=== PATIENT | male | born 1975 | race African-American/Black ===

== ENCOUNTER 2025-04-15 15:25 | Observation (INO) | payer OTHER, SELFPAY ==
[2025-04-15] VITALS (8 sets, daily range): BP systolic 118–159; BP diastolic 79–99; PULSE 74–109; RESP 15–20; TEMP 36.5–36.9; O2SAT 98–100; BMI 32.3
--- NOTE | ~2025-04-15 | US_ITS ---
EXAMINATION: US renal BI DATE: 04/16/2025 12:09 INDICATION: Acute renal insufficiency TECHNIQUE: Multiple ultrasound grayscale images of the kidneys were obtained. COMPARISON: None. FINDINGS: The right kidney measures 10.9 x 5.5 x 5.7 cm. The left kidney measures 11.7 x 6.9 x 5.7 cm. The kidn eys demonstrate normal echogenicity. There is no hydronephrosis in either kidney. No stones identifi ed. The bladder is normal with normal bilateral ureteral jets visualized on color Doppler. IMPRESSION: 1. Normal kidneys without hydronephrosis. Reviewed, dictated and finalized at location A.
[2025-04-15] MEDS: SODIUM CHLORIDE 0.9% IV 1,000 ML 999 ML IV CONT (16:22)
[2025-04-15 16:34] LABS: Hematocrit 47.5 % (42.0-52.0); Hemoglobin 16.2 g/dL (14.0-18.0); Immature Granulocyte Percent A 0.5 % (0-0.5); Lymphocytes Absolute Auto 1.73 K/mm3 (0.9-3.2); Mean Corpuscular HGB Conc 34.1 g/dl (32-36); Mean Corpuscular Hemoglobin 29.5 pg (26-34); Mean Corpuscular Volume 86.5 fl (80-100); Nucleated Red Blood Cells Absolute Auto 0.000 K/mm3 (0.0-0.012); Nucleated Red Blood Cells Perc 0.0 % (0.0-0.2); Platelet Count Result 337 k/mm3 (150-375); Red Blood Count 5.49 M/mm3 (4.6-6.20); White Blood Count 12.2 K/mm3 (4.5-10.0)
[2025-04-15 16:47] LABS: Alanine Aminotransferase 31 U/L (6-50); Albumin Level 5.2 g/dL (3.5-5.1); Alkaline Phosphatase 73 U/L (38-126); Anion Gap 12 mmol/L (4-12); Aspartate Amino Transferase 42 U/L (17-59); Bilirubin,Total 1.1 mg/dL (0.2-1.3); Blood Urea Nitrogen 40 mg/dL (9-20); Calcium 10.4 mg/dL (8.4-10.2); Carbon Dioxide 27 mmol/L (22-30); Chloride 101 mmol/L (98-107); Creatine Kinase 378 U/L (55-170); Estimated CRCL calculation 32 ml/min; Estimated Glomerular Filt Rate 23; Glucose 77 mg/dL (65-110); Potassium 3.9 mmol/L (3.4-5.0); Sodium 140 mmol/L (137-145); Total Protein 9.5 g/dL (6.3-8.2)
--- NOTE | 2025-04-15 16:48 | ED.GENADULT ---
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 Reports he works outside. He was trying to keep up with hydration. Reports he felt diffuse muscle cramping. Is feeling better after some hydration. <MINESH Ballard Last Filed: 04/15/25 19:04> Related Data Home medications: Home Medications ?Medication ?Instructions ?Recorded ?Confirmed ?Last Taken ?Type atorvastatin 20 mg tablet 20 mg PO QPM 04/15/25 04/15/25 04/14/25 History testosterone 2 pump topical DAILY 04/15/25 04/15/25 Unknown History tirzepatide 15 mg/0.5 mL 15 mg subcut WEEKLY 04/15/25 04/15/25 04/08/25 History subcutaneous pen injector (Mounjaro) <MINESH Ballard Last Filed: 04/15/25 19:04> Allergies/adverse reactions: Allergies Allergy/AdvReac Type Severity Reaction Status Date / Time No Known Allergies Allergy Verified 04/15/25 15:36 <MINESH Ballard Last Filed: 04/15/25 19:04> Review of Systems Review of Systems: All systems reviewed & are unremarkable except as noted in HPI and below <MINESH Ballard Last Filed: 04/15/25 19:04> PMFSH Past Medical History Medical History: Medical History Type 2 diabetes mellitus <Inés Gloria PA-C - Last Filed: 04/15/25 19:04> Family History Family History: Family History Mother Diabetes mellitus Hypertension Sibling Hypertension <MINESH Ballard Last Filed: 04/15/25 19:04> Social History Social History: Social History Smoking status: Never smoker Alcohol intake: never Substance use type: does not use Lack of Transportation: No Lack of Food: Never True Current Housing: I Have Housing Concerned About Future Housing: No Difficulty Paying Gas/Electric Bills: No Difficulty Paying for Meds: No Currently Unemployed: No Education: Associate Degree Difficulty w/ Childcare or Family Care: No Spiritual care concerns: No <Inés Gloria PA-C - Last Filed: 04/15/25 19:04> Exam Narrative: GENERAL: Well-appearing, well-nourished, and in no acute distress. HEAD: Normocephalic, atraumatic. EYES: EOMI. ENT: Nares clear, no rhinorrhea or epistaxis. Mucous membranes moist. Oropharynx without tonsillar hypertrophy exudate or other lesions. CHEST: Clear to auscultation. No respiratory distress. No wheezes rales or rhonchi HEART: Regular rate and rhythm. No murmur heard. Normal peripheral pulses. ABDOMEN: Soft, nontender, nondistended, normal active bowel sounds. EXTREMITIES: Normal range of motion. No edema. SKIN: Warm, dry, no rash. NEURO: No focal deficits. Alert and oriented x3. PSYCH: Normal mood and affect <MINESH Ballard Last Filed: 04/15/25 19:04> Course Course Emergency Course: Patient updated on his workup and recommendation for admission <MINESH Ballard Last Filed: 04/15/25 19:04> DIRECTOR PERIOPERATIVE/PA Physician Supervision This visit was performed by both a physician and an APC. I performed all aspects of the MDM as documented. <Alex Alvarenga MD - Last Filed: 04/15/25 20:27> Consultations Consultation #1: Spoke with hospitalist about patient and workup who accepts admission <Inés Gloria PA-C - Last Filed: 04/15/25 19:04> Date: 04/15/25 <Inés Gloria PA-C - Last Filed: 04/15/25 19:04> Vital Signs Vital signs: Vital Signs Temperature 97.9 F 04/15/25 15:30 Pulse Rate 108 H 04/15/25 15:30 Respiratory Rate 20 04/15/25 15:30 Blood Pressure 118/79 04/15/25 15:30 Pulse Oximetry 98 04/15/25 15:30 Oxygen Delivery Room Air 04/15/25 15:30 Temperature 98.4 F 04/15/25 20:05 Pulse Rate 74 04/15/25 20:05 Respiratory Rate 20 04/15/25 20:05 Blood Pressure 144/83 H 04/15/25 20:05 Pulse Oximetry 100 04/15/25 20:05 Oxygen Delivery Room Air 04/15/25 15:30 <Inés Gloria PA-C - Last Filed: 04/15/25 19:04> Vital Signs Temperature 97.9 F 04/15/25 15:30 Pulse Rate 108 H 04/15/25 15:30 Respiratory Rate 20 04/15/25 15:30 Blood Pressure 118/79 04/15/25 15:30 Pulse Oximetry 98 04/15/25 15:30 Oxygen Delivery Room Air 04/15/25 15:30 Temperature 98.4 F 04/15/25 20:05 Pulse Rate 74 04/15/25 20:05 Respiratory Rate 20 04/15/25 20:05 Blood Pressure 144/83 H 04/15/25 20:05 Pulse Oximetry 100 04/15/25 20:05 Oxygen Delivery Room Air 04/15/25 15:30 <Alex Alvarenga MD - Last Filed: 04/15/25 20:27> Medical Decision Making MDM Narrative Medical decision making narrative: Patient presents to the emergency department for dehydration, muscle cramping. Tachycardic upon arrival, this normalized with IV fluids. CBC with mild leukocytosis to 12.2. Metabolic panel with evidence of acute kidney injury with creatinine of 2.97. CK is mildly elevated at 378. Urine with evidence of dehydration. Patient hydrated with 2 L of IV fluids. Patient updated on his workup and recommendation for admission. Spoke with hospitalist about patient and workup who accepts admission <Inés Gloria PA-C - Last Filed: 04/15/25 19:04> Differential Diagnosis Differential Diagnosis: Dehydration, acute kidney injury, electrolyte derangement <Inés Gloria PA-C - Last Filed: 04/15/25 19:04> Medical Records Medical records reviewed: Yes I reviewed the external patient's medical records. <Inés Gloria PA-C - Last Filed: 04/15/25 19:04> Medical records narrative: I was able to review patient's blood work from his EMR on his phone showing a Cr of 1.19 just a couple of weeks ago <MINESH Ballard Last Filed: 04/15/25 19:04> Vital Signs Vital Signs: Vital Signs Temperature 97.9 F 04/15/25 15:30 Pulse Rate 108 H 04/15/25 15:30 Respiratory Rate 20 04/15/25 15:30 Blood Pressure 118/79 04/15/25 15:30 Pulse Oximetry 98 04/15/25 15:30 Oxygen Delivery Room Air 04/15/25 15:30 Temperature 98.4 F 04/15/25 20:05 Pulse Rate 74 04/15/25 20:05 Respiratory Rate 20 04/15/25 20:05 Blood Pressure 144/83 H 04/15/25 20:05 Pulse Oximetry 100 04/15/25 20:05 Oxygen Delivery Room Air 04/15/25 15:30 <MINESH Ballard Last Filed: 04/15/25 19:04> Vital Signs Temperature 97.9 F 04/15/25 15:30 Pulse Rate 108 H 04/15/25 15:30 Respiratory Rate 20 04/15/25 15:30 Blood Pressure 118/79 04/15/25 15:30 Pulse Oximetry 98 04/15/25 15:30 Oxygen Delivery Room Air 04/15/25 15:30 Temperature 98.4 F 04/15/25 20:05 Pulse Rate 74 04/15/25 20:05 Respiratory Rate 20 04/15/25 20:05 Blood Pressure 144/83 H 04/15/25 20:05 Pulse Oximetry 100 04/15/25 20:05 Oxygen Delivery Room Air 04/15/25 15:30 <Alex Alvarenga MD - Last Filed: 04/15/25 20:27> Lab Data Lab results reviewed: Yes I reviewed the patient's lab results. <Inés Gloria PA-C - Last Filed: 04/15/25 19:04> Result diagrams: 04/15/25 16:25 04/15/25 16:25 <Inés Gloria PA-C - Last Filed: 04/15/25 19:04> Labs: Lab Results 04/15/25 04/15/25 Range/Units 16:25 17:23 WBC 12.2 H (4.5-10.0) K/mm3 RBC 5.49 (4.6-6.20) M/mm3 Hgb 16.2 (14.0-18.0) g/dL Hct 47.5 (42.0-52.0) % MCV 86.5 (80-100) fl MCH 29.5 (26-34) pg MCHC 34.1 (32-36) g/dl RDW 12.9 (11.5-14.5) % Plt Count 337 (150-375) k/mm3 MPV 9.5 (7.4-10.4) fl Immature Gran % (Auto) 0.5 (0-0.5) % Neut % (Auto) 76.9 H (45.5-73.1) % Lymph % (Auto) 14.2 L (18.3-44.2) % [place] % (Auto) 6.6 (2.6-8.5) % Eos % (Auto) 1.6 (0-4.4) % Baso % (Auto) 0.2 (0.2-1.2) % Lymph # (Auto) 1.73 (0.9-3.2) K/mm3 [place] # (Auto) 0.8 H (0.1-0.6) K/mm3 Eos # (Auto) 0.2 (0-0.3) K/mm3 Baso # (Auto) 0.0 (0.0-0.1) K/mm3 Abs Immat Gran (auto) 0.06 H (0.00-0.031) K/mm3 Absolute Neuts (auto) 9.4 H (1.3-6.7) K/mm3 Absolute Nucleated RBC 0.000 (0.0-0.012) K/mm3 Nucleated RBC % 0.0 (0.0-0.2) % Sodium 140 (137-145) mmol/L Potassium 3.9 (3.4-5.0) mmol/L Chloride 101 (98-107) mmol/L Carbon Dioxide 27 (22-30) mmol/L Anion Gap 12 (4-12) mmol/L BUN 40 H (9-20) mg/dL Creatinine 2.97 H (0.7-1.3) mg/dL Estim Creat Clear Calc 32 ml/min Estimated GFR 23 L (59 - ) Glucose 77 (65-110) mg/dL Calcium 10.4 H (8.4-10.2) mg/dL Total Bilirubin 1.1 (0.2-1.3) mg/dL AST 42 (17-59) U/L ALT 31 (6-50) U/L Alkaline Phosphatase 73 (38-126) U/L Total Creatine Kinase 378 H (55-170) U/L Total Protein 9.5 H (6.3-8.2) g/dL Albumin 5.2 H (3.5-5.1) g/dL Urine Color Yellow (Yellow) Urine Appearance Clear (Clear) Urine pH 5.0 (5.0-9.0) Ur Specific [place] 1.027 (1.001-1.035) Urine Protein 1+ H (Negative) mg/dL Urine Glucose (UA) Negative (Negative) mg/dL Urine Ketones Trace H (Negative) mg/dL Ur Blood (Man) Trace (Negative) Urine Nitrate Negative (Negative) Urine Bilirubin Negative (Negative) Urine Urobilinogen 0.2 (<2.0) mg/dL Add Ur Microanalysis Reviewed Leukocyte Esterase Rfl Trace H (Negative) EDA/UL Urine RBC 0-2 (0-2) /hpf Urine WBC 6-10 H (0-3) /hpf Ur Squamous Epith Cells Few (Few) /hpf Urine Bacteria None seen /hpf Urine Casts >20 <Inés Gloria PA-C - Last Filed: 04/15/25 19:04> Lab Results 04/15/25 04/15/25 Range/Units 16:25 17:23 WBC 12.2 H (4.5-10.0) K/mm3 RBC 5.49 (4.6-6.20) M/mm3 Hgb 16.2 (14.0-18.0) g/dL Hct 47.5 (42.0-52.0) % MCV 86.5 (80-100) fl MCH 29.5 (26-34) pg MCHC 34.1 (32-36) g/dl RDW 12.9 (11.5-14.5) % Plt Count 337 (150-375) k/mm3 MPV 9.5 (7.4-10.4) fl Immature Gran % (Auto) 0.5 (0-0.5) % Neut % (Auto) 76.9 H (45.5-73.1) % Lymph % (Auto) 14.2 L (18.3-44.2) % [place] % (Auto) 6.6 (2.6-8.5) % Eos % (Auto) 1.6 (0-4.4) % Baso % (Auto) 0.2 (0.2-1.2) % Lymph # (Auto) 1.73 (0.9-3.2) K/mm3 [place] # (Auto) 0.8 H (0.1-0.6) K/mm3 Eos # (Auto) 0.2 (0-0.3) K/mm3 Baso # (Auto) 0.0 (0.0-0.1) K/mm3 Abs Immat Gran (auto) 0.06 H (0.00-0.031) K/mm3 Absolute Neuts (auto) 9.4 H (1.3-6.7) K/mm3 Absolute Nucleated RBC 0.000 (0.0-0.012) K/mm3 Nucleated RBC % 0.0 (0.0-0.2) % Sodium 140 (137-145) mmol/L Potassium 3.9 (3.4-5.0) mmol/L Chloride 101 (98-107) mmol/L Carbon Dioxide 27 (22-30) mmol/L Anion Gap 12 (4-12) mmol/L BUN 40 H (9-20) mg/dL Creatinine 2.97 H (0.7-1.3) mg/dL Estim Creat Clear Calc 32 ml/min Estimated GFR 23 L (59 - ) Glucose 77 (65-110) mg/dL Calcium 10.4 H (8.4-10.2) mg/dL Total Bilirubin 1.1 (0.2-1.3) mg/dL AST 42 (17-59) U/L ALT 31 (6-50) U/L Alkaline Phosphatase 73 (38-126) U/L Total Creatine Kinase 378 H (55-170) U/L Total Protein 9.5 H (6.3-8.2) g/dL Albumin 5.2 H (3.5-5.1) g/dL Urine Color Yellow (Yellow) Urine Appearance Clear (Clear) Urine pH 5.0 (5.0-9.0) Ur Specific [place] 1.027 (1.001-1.035) Urine Protein 1+ H (Negative) mg/dL Urine Glucose (UA) Negative (Negative) mg/dL Urine Ketones Trace H (Negative) mg/dL Ur Blood (Man) Trace (Negative) Urine Nitrate Negative (Negative) Urine Bilirubin Negative (Negative) Urine Urobilinogen 0.2 (<2.0) mg/dL Add Ur Microanalysis Reviewed Leukocyte Esterase Rfl Trace H (Negative) EDA/UL Urine RBC 0-2 (0-2) /hpf Urine WBC 6-10 H (0-3) /hpf Ur Squamous Epith Cells Few (Few) /hpf Urine Bacteria None seen /hpf Urine Casts >20 <Alex Alvarenga MD - Last Filed: 04/15/25 20:27> Critical Care Time Critical Care Time Critical Care Time: Yes <Inés Gloria PA-C - Last Filed: 04/15/25 19:04> Total Critical Care Time: 35 <Inés Gloria PA-C - Last Filed: 04/15/25 19:04> Discharge Plan Discharge Clinical Impression: Acute kidney injury <Inés Gloria PA-C - Last Filed: 04/15/25 19:04> Patient Disposition: Still a Patient <Inés Gloria PA-C - Last Filed: 04/15/25 19:04> Condition: Stable <Inés Gloria PA-C - Last Filed: 04/15/25 19:04>
--- OUTSIDE RECORDS SUMMARY | 2025-04-15 17:01 | XMS_ITS | Clinical Summary ---
Author Organization [facility] Address [address] [place] [address] Care Team Providers Care [employer] Revenue Officer Name Role Phone Andrés Davis MD Primary Care Provider [phone] Source Comments [facility],non-owned Affiliates and Associated Physician Practices is amultiple site organization consisting of ambulatory clinics and hospital sitesin [place], [place], [place] and [place]. This disclosure is being madepursuant to the Care Everywhere program and may not contain all information available regarding this patient. Last updated 18.[facility] Allergies No known active allergies Medications * Be aware that medications may not be up to date on this document. Alwaysverify current medications with the patient. No known medications Active Problems Problem Noted Date Diagnosed Date Acute renal failure 02/18/2014 Social History Tobacco Use Types Packs/Day Years Used Date Smoking Tobacco: Never Smokeless Tobacco: Never Alcohol Use Standard Drinks/Week Comments Not Asked 0 (1 standard drink = 0.6 oz pur e alcohol) social Sex and Gender Information Value Date Recorded Sex Assigned at Not on file Legal Sex Male 6:53 PM CDT Gender Identity Not on file Sexual Orientation Not on file Last Filed Vital Signs Vital Sign Reading Time Taken Comments Blood Pressure 122/78 02/18/2014 2:30 PM CDT Pulse 62 02/18/2014 2:30 PM CDT Temperature 36.6 C (97.8 F) 02/18/2014 2:30 PM CDT Respiratory Rate 18 02/18/2014 2:30 PM CDT Oxygen Saturation 100% 02/18/2014 2:30 PM CDT Inhaled Oxygen Concentration - - Weight 102.1 kg (225 lb) 02/17/2014 9:45 PM CDT Height 172.7 cm (5' 7.99) 02/17/2014 9:45 PM CD T Body Mass Index 34.22 02/17/2014 9:45 PM CDT Plan of Treatment Health Maintenance Due Date Last Done Comments COLOGUARD (AGES 45-75) - COL ON CA SCREENING 1976 COLON MONITORING 1976 COLONOSCOPY - COLON CA SCREENING 1976 CT COLONOGRAPHY - COLON CA SCREENING 1976 Colorectal Cancer Screening 1976 FIT - COLON CA SCREENING 1976 FLEX SIG - COLON CA SCREENING 1976 LIPID TESTING 1976 HIV SCREENING 1991 HEPATITIS C SCREENING 03/08/1994 DTAP/TDAP/TD VACCINES (1 - Tdap) 1995 HEPATITIS B VACCINE (1 of 3 - 19+ 3-dose series) 1995 COVID-19 VACCINE (1 - 2023-2 5 season) 2024 DEPRESSION SCREENING 08/30/2024 INFLUENZA VACCINE (#1) 2025 ZOSTER VACCINE (1 of 2) 2026 HIB VACCINE Aged Out No longer eligi ble based on patient's age to complete this topic HPV VACCINE Aged Out No longer eligi ble based on patient's age to complete this topic MENINGOCOCCAL (Group B) VACC INE SHARED DECISION-MAKING Aged Out No longer eligibl e based on patient's age to complete this topic MENINGOCOCCAL GROUPS A/C/Y/W VACCINE Aged Out No longer eligible b ased on patient's age to complete this topic Insurance [facility] Advance Directives * Full Code (Latest Code Status on File) Date Activated Date Inactivated Comments 02/17/2014 9:44 PM 02/18/2014 4:53 PM Care Teams [employer]. Revenue Officer Relationship Specialty Start Date End Date Andrés Davis MD PCP - General Internal Medicine 02/17/14
[2025-04-15] MEDS: LACTATED RINGERS 1,000 ML 999 ML IV CONT (17:02)
--- OUTSIDE RECORDS SUMMARY | 2025-04-15 17:02 | XMS_ITS | Clinical Summary ---
Author Organization [facility] Address [address] [place] [address] Care Team Providers Care Plastics Heat Welder Name Role Phone Andrés Davis MD Primary Care Provider [phone] Allergies No known active allergies Medications No known medications Family History Medical History Relation Comments Cancer Father Diabetes Mother Hypertension Mother Relation Status Comments Father Alive Mother Alive Social History Tobacco Use Types Packs/Day Years Used Date Smoking Tobacco: Never Smokeless Tobacco: Never Alcohol Use Standard Drinks/Week Comments No 0 (1 standard drink = 0.6 oz pur e alcohol) Sex and Gender Information Value Date Recorded Sex Assigned at Not on file Legal Sex Male 7:52 PM CDT Gender Identity Not on file Sexual Orientation Not on file Last Filed Vital Signs Vital Sign Reading Time Taken Comments Blood Pressure 134/84 03/20/2018 2:29 PM CDT Pulse 83 03/20/2018 2:29 PM CDT Temperature 36.4 C (97.6 F) 03/20/2018 2:29 PM CDT Respiratory Rate 16 03/20/2018 2:29 PM CDT Oxygen Saturation 98% 03/20/2018 2:29 PM CDT Inhaled Oxygen Concentration - - Weight 113.4 kg (250 lb) 03/20/2018 2:29 PM CDT Height 172.7 cm (5' 8) 03/20/2018 2:29 PM CDT Body Mass Index 38.01 03/20/2018 2:29 PM CDT Plan of Treatment Health Maintenance Due Date Last Done Comments Colorectal Cancer Screening Colonoscopy (10 Years) 1976 Annual Physical 1979 Hepatitis C 1994 DTaP, Tdap and Td Vaccines ( 1 - Tdap) 1995 Hepatitis B Vaccines (1 of 3 - 19+ 3-dose series) 1995 COVID-19 Vaccine (1 - 2023-2 5 season) 2024 Meningococcal B Vaccine Aged Out No l onger eligible based on patient's age to complete this topic Meningococcal Vaccine Aged Out No poppy gildardo eligible based on patient's age to complete this topic Pneumococcal Vaccine: Pediat rics (0 to 5 Years) and At-Risk Patients (6 to 49 Years) Aged Out No longer eligible b ased on patient's age to complete this topic RSV Immunizations Under 20 Months Aged Out No longer eligible based on patient's age to complete this topic Insurance Care Teams Plastics Heat Welder Relationship Specialty Start Date End Date Andrés Davis MD [address] [place] [address] PCP - General 06/24/15
--- OUTSIDE RECORDS SUMMARY | 2025-04-15 17:02 | XMS_ITS | Clinical Summary ---
Author Organization [facility] Address [address] [place] [phone] Phone Care Team Providers Care Roll Edge Stitcher Hand Name Role Phone Derian Castro MD Primary Care Provider [phone] Allergies No known active allergies Medications cpap medical deviceIndications :ALBA (obstructive sleep apnea),Daytime somnolence,Type 2 diabetes mellitus without complication, without long-term current use of insulin ([facility]),Chronic insomnia APAP @ 6-15 cwp with heated humidifier. Length of need:99 months; fit with mask & headgear. Mask/Headgear as needed every 3- 6 months; 1 cushion as needed every 3-6 months; Tubing heated, 1 as needed every 6 months, water chamber 1 as needed every 6 months, chin strap 1 as needed every 6 months, filters disposable, 2 as needed every 3- 6 months, filters reusable 1 every 6 months. 1 Each 023 Active Additional Information Patient not taking.Reported on 04/02/2025 bacitracin-polymy sylwia B (POLYSPORIN) 500-10,000 unit/gram ointmentIndicatio ns:Hordeolum of right upper eyelid, unspecified hordeolum type Administer 0.25 Inches in right eye every 4 hours. 3.5 Gram 025 Active Additional Information Patient not taking.Reported on 04/02/2025 glycopyrrolate (ROBINUL) 1 mg tablet Take 1 Tablet (1 mg) by mouth 3 times daily. PRN for excess sweating. 300 Tablet 3 03/21/20 25 2:48 PM CDT 025 Active testosterone (ANDROGEL) 20.25 mg/1.25 gram (1.62 %) Gel in Metered-dose PumpIndications:H ypogonadism in male Apply 40.5 mg (2 pumps) to affected area daily. Apply to the shoulders and upper arms in the morning 75 Gram 2 Active atorvastatin (LIPITOR) 20 mg tabletIndications :Mixed hyperlipidemia Take 1 Tablet (20 mg) by mouth daily. 100 Tablet 3 Active tirzepatide (Mounjaro) 15 mg/0.5 mL Pen InjectorIndicatio ns:Type 2 diabetes mellitus without complication, without long-term current use of insulin ([facility]) Inject 15 mg by subcutaneous injection every 7 days. 6 mL 3 04/04/20 25 3:27 PM CDT Active testosterone enanthate (Xyosted) 50 mg/0.5 mL Auto-InjectorIndi cations:Central hypogonadism Inject 50 mg by subcutaneous injection every 7 days. 6 mL 1 025 2024 Discontinued(A lternate therapy prescribed) atorvastatin (LIPITOR) 20 mg tabletIndications :Mixed hyperlipidemia Take 1 Tablet (20 mg) by mouth daily. 100 Tablet 3 2024 Discontinued(R eorder) tirzepatide (Mounjaro) 15 mg/0.5 mL Pen InjectorIndicatio ns:Type 2 diabetes mellitus without complication, without long-term current use of insulin ([facility]) Inject 15 mg by subcutaneous injection every 7 days. 6 mL 3 01/30/20 25 10:54 AM CDT 025 2024 Discontinued(R eorder) testosterone (ANDROGEL) 20.25 mg/1.25 gram (1.62 %) Gel in Metered-dose PumpIndications:H ypogonadism in male Apply 40.5 mg to affected area daily. Apply to the shoulders and upper arms in the morning 75 Gram 2 025 2024 Discontinued glycopyrrolate (ROBINUL) 1 mg tablet Take 1 Tablet (1 mg) by mouth 3 times daily. PRN for excess sweating. 300 Tablet 3 025 2024 Discontinued atorvastatin (LIPITOR) 20 mg tabletIndications :Mixed hyperlipidemia Take 1 Tablet (20 mg) by mouth daily. 100 Tablet 3 03/21/20 2:48 PM CDT 025 2024 Discontinued(R eorder) testosterone (ANDROGEL) 20.25 mg/1.25 gram (1.62 %) Gel in Metered-dose PumpIndications:H ypogonadism in male Apply 40.5 mg (2 pumps) to affected area daily. Apply to the shoulders and upper arms in the morning 75 Gram 2 03/21/20 2:48 PM CDT 025 2024 Discontinued(R eorder) tetanus and diphtheria toxoids and acellular pertussis vaccine PF, adult,, Tdap, (Adacel) 2 Lf-(2.5-5-3-5 mcg)-5Lf/0.5 mL Suspension Inject 0.5 mL by intramuscular injection one time only for 1 dose. 0.5 mL 025 2024 Active Problems Patient Care Coordination No te Formatting of this note migh t be different from the original. DME: [facility] for CPAP Problem Noted Date Diagnosed Date HLD (hyperlipidemia) 03/19/2025 Overview (03/19/2025): Lab Results Component Value Date CHOLTOT 217 (H) 09/08/2024 CHOLTOT 149 06/10/2023 HDL 45 09/08/2024 HDL 42 06/10/2023 TRIGLYCERIDE 115 09/08/2024 TRIGLYCERIDE 127 06/10/2023 LDLCALC 149 (H) 09/08/2024 LDLCALC 85 06/10/2023 03/19/25: LDL 149 in Aug, patient states he was not taking the atorvastatin 20 back then, he is taking it now and need a refill. Med: atorvastatin 20 Inattention 03/19/2025 Overview (03/19/2025): 03/19/25: patient does have inattention issues, he is interested in looking through the ADHD questionnaire to see if he has significant symptoms. Can reschedule appointment to discuss in detail if needed. Assessment & Plan (03/19/2025 9:24 AM CDT): Can reschedule appointment to discuss in detail if needed. Acute pain of left knee 03/13/2024 Overview (03/13/2024): 03/13/24: twisted his knee last , was pushing a pallet at his new job and turned around and twisted his knee. Pain got worse after the injury, but is doing better now. Based on exam, suspect medial meniscus injury, no obvious ligament injury. Provided stretches, and recommend icing the region. Assessment & Plan (03/13/2024 10:17 AM CDT): Provided stretches, and recommend icing the region. Weak urinary stream 03/13/2024 Overview (03/13/2024): 03/13/24: Messaged me in 01/31/24 about weak urine stream going on for a week, no pain or other symptoms (no blood or flank pain). UA and UCx both negative, PSA also normal and similar to 1 year ago. Trialed on Flomax with no improvement. He has been out of testosterone for 3-4 month due to cost issues. He was also off of Synjardy for at least 4 month, discuss that he may urinate less frequently after stopping the SGLT-2 inhibitor, but symptoms should not persist and is not really consistent with what he is feeling. Feels like urine is not coming down from the bladder, has to strain harder to get it out, but states he is able to completely empty out the bladder with no urge to urinate after voiding. He did have some issues with straining for BM as well, but that is improved. Did consider trial of abx but less likely to help and risk may not be worth it. Ideally should just see urology (has appointment next month), possibly to get scoped for structural abnormalities or interstitial cystitis. Assessment & Plan (03/13/2024 10:20 AM CDT): Did consider trial of abx but less likely to help and risk may not be worth it. Ideally should just see urology (has appointment next month), possibly to get scoped for structural abnormalities or interstitial cystitis. Severe obesity (BMI 35.0-39.9) with comorbidity 03/13/2024 Overview (03/19/2025): Wt Readings from Last 3 Encounters: 03/19/25 103.6 kg (228 lb 6.4 oz) 09/18/24 101.2 kg (223 lb) 03/13/24 112 kg (247 lb) Body mass index is 34.22 kg/m . Comorbid conditions: Type 2 Diabetes, ALBA Assessment & Plan (03/19/2025 9:05 AM CDT): Discussed diet and lifestyle modifications that can help. Skin lesion 06/17/2023 Overview (06/17/2023): 06/17/23: has a bump on the chin on the right near the neck about 2 weeks ago, no itching. On exam does not look like abscess, could be keloid formation, will try course of betamethasone ointment. Assessment & Plan (06/17/2023 3:02 PM CDT): On exam does not look like abscess, could be keloid formation, will try course of betamethasone ointment. ALBA (obstructive sleep apnea) 12/22/2022 Overview (06/17/2023): 06/17/23: did get sleep study done, diagnosed with ALBA and placed on CPAP. Assessment & Plan (06/17/2023 3:05 PM CDT): Continue CPAP. Hepatic steatosis 10/15/2022 Overview (10/15/2022): 10/15/22: Liver US - Moderate to severe diffuse hepatic steatosis. Assessment & Plan (03/13/2024 10:18 AM CDT): Discussed diet and lifestyle modifications that can help. Hypogonadism in male 10/14/2022 Overview (03/19/2025): Lab Results Component Value Date TESTOSTTO 225 (L) 09/08/2024 TESTOSTTO 187 (L) 06/10/2023 TESTOSTTO 398 02/06/2023 TESTOSTTO 155 (L) 10/23/2022 TESTOSTFRE 36.2 (L) 06/10/2023 TESTOSTFRE 89.5 02/06/2023 TESTOSTFRE 36.1 (L) 10/23/2022 TESTOSTFRE 37.7 10/09/2022 10/14/22: Patient had 2 low testosterone levels and normal FSH and LH, will refer to endocrine. 12/14/22: seeing Dr. Matos now. 06/17/23: did try Clomid, testosterone did increase in 02/06/23, but patient stopped the Clomid in February or March due to high cost. 03/13/24: not on testosterone or therapy due to cost issue. 03/19/25: insurance not covering the testosterone injection (as it was a brand name auto-injector, he is hesitant about the IM injection), can either try the gel again (which was also expensive) or be okay with the IM. He wants to try the Androgel again, will send in. Assessment & Plan (03/19/2025 9:12 AM CDT): He wants to try the Androgel again, will send in. Assessment & Plan (03/13/2024 10:18 AM CDT): Follow with relevant specialist. Assessment & Plan (06/17/2023 3:05 PM CDT): Will try to send a 30 day supply to pharmacy to see if that has better coverage. Assessment & Plan (12/14/2022 4:12 PM CDT): Stable. Continue to follow with relevant specialist. Type 2 diabetes mellitus wit hout complication, without long-term current use of insulin 09/21/2022 Overview (03/19/2025): Lab Results Component Value Date HGBA1C 5.3 09/08/2024 [id number] 5.2 03/19/2025 - STEPH/ARB: - Statin (>40yo): 09/21/22: A1c 7.3, fasting sugar 129, consistent with diagnosis of diabetes. We will start patient on metformin. 12/14/22: patient did see Endocrine and was switched from Metformin to Synjardy 25-1000 mg daily, and added Ozempic, has been on it for 6-7 weeks now. Has been losing weight. States stomach, hands, and legs are all feeling better. 03/19/25: patient on Mounjaro 15 mg, states it is making him feel bad on occasions, side effects comes in spurts, he feels it could be related to his hydration status. Discussed he needs to weight the pros and cons of the medication and decide if he wants to reduce the dosage, and if hydration helps, staying hydrated at all times is another strategy. - Endo: Matos - POC A1c today: - Current glycemic control meds: Ozempic - Complications: Assessment & Plan (03/19/2025 9:07 AM CDT): Diabetes well controlled. Discussed he needs to weight the pros and cons of the medication and decide if he wants to reduce the dosage, and if hydration helps, staying hydrated at all times is another strategy. Assessment & Plan (03/13/2024 10:12 AM CDT): Diabetes: Well controlled and Stable. Continue current management. Assessment & Plan (06/17/2023 3:05 PM CDT): Stable. Continue to follow with relevant specialist. Assessment & Plan (12/14/2022 4:09 PM CDT): Diabetes: Stable. Continue current management. Every Word Counts - Diabetes and Diabetic Complications ([facility]) Hyperhidrosis 09/15/2022 Overview (09/15/2022): 09/15/22: patient on PRN Robinul, does get dry mouth from it, just using on certain occasions. Assessment & Plan (03/13/2024 10:18 AM CDT): Stable. Continue current regimen. Assessment & Plan (09/15/2022 4:08 PM UM SPECIALIST): Stable. Continue current regimen. Family history of prostate cancer in father 08/30 Overview (03/13/2024): Lab Results Component Value Date PSA 0.50 02/25/2024 PSA 0.45 09/17/2022 09/15/22: patient states father had prostate cancer diagnosed in his 40s. We agreed to check PSA for patient. 12/14/22: PSA normal, can check every other years. Assessment & Plan (03/13/2024 10:21 AM CDT): Stable. Continue to follow and monitor for signs and symptoms of clinical complications. Assessment & Plan (12/14/2022 4:15 PM CDT): Stable. Check PSA every other year. Assessment & Plan (09/15/2022 5:05 PM UM SPECIALIST): We agreed to check PSA. Tinea 09/15/2022 Overview (09/15/2022): 09/15/22: Skin discoloration on the face and forehead. The forehead discoloration has been going on for a year. Exam consistent with fungal infection over patches of the face as well as a hairline. We will try ketoconazole cream. Assessment & Plan (09/15/2022 5:02 PM UM SPECIALIST): We will try ketoconazole cream. Low libido 09/15/2022 Overview (09/15/2022): 09/15/22: Patient complains of low sex drive. Assessment & Plan (09/15/2022 5:03 PM UM SPECIALIST): Agreed to check testosterone level. Axillary lump, bilateral 09/15/2022 Overview (09/15/2022): 09/15/22: Patient complains of some lumps in the armpits. Nontender at this time. On exam there is regions of induration, could be early signs of formation of carbuncles, asked patient to keep the region clean for now. If experiencing tenderness or redness or drainage, we can treat with a course of antibiotics. Resolved Problems Problem Noted Date Diagnosed Date Resolved Date Morbid obesity with body mas s index (BMI) of 40.0 or higher 09/15/2022 03/13/2024 Overview (12/14/2022): Wt Readings from Last 3 Encounters: 12/14/22 124.3 kg (274 lb 1.9 oz) 11/24/22 125.6 kg (277 lb) 10/22/22 128.8 kg (284 lb) Body mass index is 41.68 kg/m . Assessment & Plan (12/14/2022 4:18 PM CDT): Improving. Estimated body mass index is 41.68 kg/m as calculated from the following: Height as of this encounter: 5' 8 (1.727 m). Weight as of this encounter: 124.3 kg (274 lb 1.9 oz).BMI 40 or above. Counseled regarding the benefits of a low calorie, well-being balanced diet and daily exercise. Assessment & Plan (09/15/2022 5:06 PM UM SPECIALIST): Estimated body mass index is 43.03 kg/m as calculated from the following: Height as of this encounter: 5' 8 (1.727 m). Weight as of this encounter: 128.4 kg (283 lb).BMI 40 or above. Counseled regarding the benefits of a low calorie, well-being balanced diet and daily exercise. Weight management options discussed. Patient preferred to hold off on medications at this time, and is not interested in weight loss surgery. We agreed to follow-up in 3 months, if no improvement then we can revisit medications. Suspected sleep apnea 09/15/20222022 Overview (09/15/2022): 09/15/22: Patient states during the day he gets really tired. He does snore at night. Gets about 7 hours of sleep a night. Does get out of breath easily when he walks up the stairs. Assessment & Plan (09/15/2022 5:02 PM UM SPECIALIST): Patient to benefit from sleep study. Chest pain 12/14/2022 Overview (09/15/2022): 09/15/22: per patient the chest pain occurred in 11/2021 in setting of URI, suspected MSK, as he went to ED at the time and had neg cardiac workup (ECG, Troponins, stress test) and neg CTA chest. No issues since then per patient. Will consider resolved. Assessment & Plan (09/15/2022 4:09 PM UM SPECIALIST): Resolved. Encounters Date Type Department Care Team Description 04/10/2025 External Device Data STL ABSTRACTION Provider, Abstract 04/02/2025 2:20 PM CDT Office Visit [facility] Endocr[facility] [address] [address] [address] [place] [address] Abdelrahman Matos MD Hypogonadism in male; Mixed hyperlipidemia; Type 2 diabetes mellitus without complication, without long-term current use of insulin (CMS/HCC); Central hypogonadism 03/28/2025 Telephone [facility] [address] [place] [address] Abdelrahman Matos MD Labs Only 03/26/2025 Orders Only [facility] End[facility] [address] [address] [address] [place] [address] Abdelrahman Matos MD Type 2 diabetes mellitus without complication, without long-term current use of insulin (CMS/HCC) (Primary Dx); Central hypogonadism 03/19/2025 9:00 AM CDT Office Visit [facility] [place] [facility] [address] [place] [address] Derian Castro MD Annual physical exam (Primary Dx); Type 2 diabetes mellitus without complication, without long-term current use of insulin ([facility]); Obesity, Class III, BMI 40-49.9 (morbid obesity); Severe obesity (BMI 35.0-39.9) with comorbidity ([facility]); Hypogonadism in male; Hyperlipidemia, unspecified hyperlipidemia type; Mixed hyperlipidemia; Inattention 03/14/2025 External Device Data STL ABSTRACTION Provider, Abstract 03/14/2025 External Device Data STL ABSTRACTION Provider, Abstract 03/14/2025 External Device Data STL ABSTRACTION Provider, Abstract 03/14/2025 External Device Data STL ABSTRACTION Provider, Abstract 03/13/2025 External Device Data STL ABSTRACTION Provider, Abstract 02/20/2025 External Device Data STL ABSTRACTION Provider, Abstract 02/20/2025 External Device Data STL ABSTRACTION Provider, Abstract 01/18/2025 External Device Data STL ABSTRACTION Provider, Abstract 01/18/2025 External Device Data STL ABSTRACTION Provider, Abstract from Last 3 Months Family History Medical History Relation Name Comments Asthma Brother Kika Ring Hypertension Brother Kika Ring Cancer Father Antabhijeet Prostate Other Father Antabhijeet Prostate cancer survivor Diabetes Mother Chapis Type 2 Hypertension Mother Chapis Relation Name Status Comments Brother Kika Ring Father Kika Mother Chapis Social History Tobacco Use Types Packs/Day Years Used Date Smoking Tobacco: Never Tobacco Cessation:Counseling Given: Yes Alcohol Use Standard Drinks/Week Comments Not Currently 0 (1 standard drink = 0.6 oz pur e alcohol) 3x a year Sex and Gender Information Value Date Recorded Sex Assigned at Not on file Legal Sex Male 7:07 PM CDT Gender Identity Not on file Sexual Orientation Not on file Last Filed Vital Signs Vital Sign Reading Time Taken Comments Blood Pressure 140/90 04/02/2025 2:25 PM CDT Pulse 81 04/02/2025 2:25 PM CDT Temperature 36.1 C (97 F) 03/19/2025 8:43 AM CDT Respiratory Rate 18 12/06/2021 3:00 AM CDT Oxygen Saturation 99% 04/02/2025 2:25 PM CDT Inhaled Oxygen Concentration - - Weight 99.8 kg (220 lb) 04/02/2025 2:25 PM CDT Height 175.3 cm (5' 9) 04/02/2025 2:25 PM CDT Body Mass Index 32.49 04/02/2025 2:25 PM CDT Plan of Treatment Upcoming Encounters Date Type Department Care Team (Late st Contact Info) Description 09/24/2025 9:00 AM UM SPECIALIST Office Visit [facility] [place] [facility] [address] [place] [address] [place] [address] [facility] [address] [place] [address] 10/08/2025 2:20 PM UM SPECIALIST Office Visit [facility] Endocrin[facility] [address] [address] [address] [place] [address] Abdelrahman Matos MD [address] [facility] [address] [place] [address] Health Maintenance Due Date Last Done Comments DIABETES ANNUAL RETINAL EXAM 1994 DTAP/TDAP/TD VACCINES (1 - Tdap) 1995 HEPATITIS B VACCINES (1 of 3 - 19+ 3-dose series) 1995 COLORECTAL SCREENING 2021 FIT/FOBT Q 1 year 2021 Flex Sig/CT Colonography Q 5 years 2021 INFLUENZA VACCINE (#1) 2025 DIABETES HBA1C Q 6 MONTHS 09/29/20252024, 03/19/2025, 09/08/2024, Additional history exists Colorectal Cancer Screening 01/06/2026 FIT-DNA Q 3 years 01/06/2026 01/06/2023 DIABETES ANNUAL FOOT EXAM 03/19/2026 03/19/2025, DIABETES MICROALBUMIN ANNUAL SCREEN 03/29/2026 03/29/2025, 09/08/2024, 02/06/2023 DIABETES: A1C (Auto Order) 03/29/202603/29, 03/19/2025, 09/08/2024, Additional history exists LDL CHOLESTEROL ANNUAL 03/29/2026 , 09/08/2024, 06/10/2023, Additional history exists Preventative Visit- Commercial Completed 0 03/19/2025, 03/13/2024, 09/15/2022 Procedures Procedure Name Priority Date/Time Associated Diagnosis Comments MICROALBUMIN/CREATINI NE RATIO, RANDOM UR Routine 03/29/2025 7:21 AM CDT Type 2 diabetes mellitus without complication, without long-term current use of insulin (CMS/HCC) Central hypogonadism PSA Routine 03/29/2025 7:16 AM CDT Type 2 diabetes mellitus without complication, without long-term current use of insulin (CMS/HCC) Central hypogonadism TESTOSTERONE, TOTAL Routine 03/29/2025 7 :16 AM CDT Type 2 diabetes mellitus without complication, without long-term current use of insulin (CMS/HCC) Central hypogonadism HEMOGLOBIN AND HEMATOCRIT Routine 03/29/2025 7:16 AM CDT Type 2 diabetes mellitus without complication, without long-term current use of insulin (CMS/HCC) Central hypogonadism TSH REFLEXIVE Routine 03/29/2025 7:16 AM CDT Type 2 diabetes mellitus without complication, without long-term current use of insulin (CMS/HCC) Central hypogonadism COMPREHENSIVE METABOLIC PANEL Routine 03/29/2025 7:16 AM CDT Type 2 diabetes mellitus without complication, without long-term current use of insulin (CMS/HCC) Central hypogonadism LIPID PANEL Routine 03/29/2025 7:16 AM CDT Type 2 diabetes mellitus without complication, without long-term current use of insulin (CMS/HCC) Central hypogonadism HEMOGLOBIN A1C Routine 03/29/2025 7:16 AM CDT Type 2 diabetes mellitus without complication, without long-term current use of insulin (CMS/HCC) Central hypogonadism POC HEMOGLOBIN A1C Routine 03/19/2025 9: 03 AM CDT Type 2 diabetes mellitus without complication, without long-term current use of insulin (CMS/HCC) COLON CANCER SCREEN, STOOL DNA Routine 01/06/2023 9:40 PM CDT Colon cancer screening from Last 3 Months or Most Recently Relevant to Health Maintenance Results * (ABNORMAL) MICROALBUMIN/CREATININE RATIO, RANDOM UR (03/29/2025 7:21 AM CDT) CREATININE, URINE 350(H) 20 - 320 mg/dL [facility] Comment: Verified by repeat analysis. ALBUMIN, URINE 1.0 See Note: mg/dL [facility] Comment: Reference Range: Reference Range Not established ALB/CREAT RATIO, URINE 3 <30 mg/g creat [facility] Comment: The ADA defines abnormalities in albumin excretion as follows: Albuminuria Category Result (mg/g creatinine) Normal to Mildly increased <30 Moderately increased 30-299 Severely increased > OR = 300 The ADA recommends that at least two of three specimens collected within a 3-6 month period be abnormal before considering a patient to be within a diagnostic category. Test Performed at: [facility] [address] [address] [place] [address] Mary Sanchez MD Urine URINE SPECIMEN OBTAINED BY CLEAN CATCH PROCEDURE / Unknown 03/29/2025 7:21 AM CDT 03/29/2025 7:21 AM CDT Abdelrahman Matos MD URINE ORDERABLES Radha l Result [facility] [phone] [facility] [address] [place] [phone] * TSH REFLEXIVE (03/29/2025 7:16 AM CDT) Pathologist [facility] TSH 2.08 0.40 - 4.50 mIU/L [facility] Comment: FASTING:YES FASTING: YES Test Performed at: [facility] [address] [facility] [place] [phone] Mary Sanchez MD Blood 03/29/2025 7:16 AM CDT 03/29/2025 7:17 AM CDT Abdelrahman Matos MD CHEMISTRY ORDERABLES Final Result [facility] [phone] [facility] [address] [place] [phone] * HEMOGLOBIN AND HEMATOCRIT (03/29/2025 7:16 AM CDT) HEMOGLOBIN 14.4 13.2 - 17.1 g/dL [facility] HEMATOCRIT 44.1 38.5 - 50.0 % [facility] Comment: FASTING:YES FASTING: YES Test Performed at: [facility] [address] [place] [phone] Mary Sanchez MD Blood 03/29/2025 7:16 AM CDT 03/29/2025 7:17 AM CDT Abdelrahman Matos MD HEMATOLOGY ORDERABLES Final Result Performing Organization Address City/[facility]/ZIP Co de Phone Number [facility] [phone] [facility] [address] [place] [phone] * TESTOSTERONE, TOTAL (03/29/2025 7:16 AM CDT) TESTOSTERONE 302 250 - 827 ng/dL [facility] Comment: Test Performed at: [facility] [address] [place] [address] Mary Sanchez MD Blood 03/29/2025 7:16 AM CDT 03/29/2025 7:17 AM CDT Abdelrahman Matos MD CHEMISTRY ORDERABLES Final Result [facility] [phone] [facility] [address] [place] [phone] * PSA (03/29/2025 7:16 AM CDT) PSA 0.45 < OR = 4.00 ng/mL [facility] Comment: The total PSA value from this assay system is standardized against the WHO standard. The test result will be approximately 20% lower when compared to the equimolar-standardized total PSA ([place]). Comparison of serial PSA results should be interpreted with this fact in mind. This test was performed using the Siemens chemiluminescent method. Values obtained from different assay methods cannot be used interchangeably. PSA levels, regardless of value, should not be interpreted as absolute evidence of the presence or absence of disease. Test Performed at: [facility] [address] [place] [address] Mary Sanchez MD Blood 03/29/2025 7:16 AM CDT 03/29/2025 7:17 AM CDT Abdelrahman Matos MD CHEMISTRY ORDERABLES Final Result [facility] [phone] [facility] [address] [place] [address] * HEMOGLOBIN A1C (03/29/2025 7:16 AM CDT) HEMOGLOBIN A1C 5.4 <5.7 % of total Hgb [facility] Comment: For the purpose of screening for the presence of diabetes: <5.7% Consistent with the absence of diabetes 5.7-6.4% Consistent with increased risk for diabetes (prediabetes) > or =6.5% Consistent with diabetes This assay result is consistent with a decreased risk of diabetes. Currently, no consensus exists regarding use of hemoglobin A1c for diagnosis of diabetes in children. According to [place] Diabetes Association (ADA) guidelines, hemoglobin A1c <7.0% represents optimal control in non- diabetic patients. Different metrics may apply to specific patient populations. Standards of Medical Care in Diabetes(ADA). ESTIMATED AVERAGE GLUCOSE (MG/DL) 108 mg/dL Peter Blueberry[facility] Hernandez ESTIMATED AVERAGE GLUCOSE (MMOL/L) 6.0 mmol/L [facility] Comment: FASTING:YES FASTING: YES Test Performed at: [facility] [address] [address] [place] [address] Mary Sanchez Blood 03/29/2025 7:16 AM CDT 03/29/2025 7:17 AM CDT Abdelrahman Matos MD CHEMISTRY ORDERABLES Final Result [facility] [phone] [facility] [address] [address] [place] [address] * LIPID PANEL (03/29/2025 7:16 AM CDT) CHOLESTEROL 137 <200 mg/dL [facility] HDL 44 > OR = 40 mg/dL [facility] TRIGLYCERIDE 87 <150 mg/dL [facility] LDL CALCULATED 76 mg/dL (calc) [facility] Comment: Reference range: <100 Desirable range <100 mg/dL for primary prevention; <70 mg/dL for patients with CHD or diabetic patients with > or = 2 CHD risk factors. LDL-C is now calculated using the Iván-Barbara calculation, which is a validated novel method providing better accuracy than the Friedewald equation in the estimation of LDL-C. Iván DIAS et al. IRON. 2013;310(19): 7400-0930 (http://education.Outbrain.CorporateWorld/faq/ZOX384) CHOL/HDL RATIO 3.1 <5.0 (calc) [facility] NON-HDL CHOLESTEROL 93 <130 mg/dL (calc) [facility] Comment: For patients with diabetes plus 1 major ASCVD risk factor, treating to a non-HDL-C goal of <100 mg/dL (LDL-C of <70 mg/dL) is considered a therapeutic option. Test Performed at: [facility] [address] [address], [place] [address] Mary Sanchez MD Blood 03/29/2025 7:16 AM CDT 03/29/2025 7:17 AM CDT us Abdelrahman Matos MD CHEMISTRY ORDERABLES Final Result [facility] [phone] [facility] [address] [place] [address] * COMPREHENSIVE METABOLIC PANEL (03/29/2025 7:16 AM CDT) GLUCOSE 87 65 - 99 mg/dL [facility] Comment: Fasting reference interval BUN 17 7 - 25 mg/dL [facility] CREATININE 1.19 0.60 - 1.29 mg/dL [facility] GFR 75 > OR = 60 mL/min/1. 73m2 [facility] BUN/CREAT RATIO SEE NOTE: 6 - 22 (calc) [facility] Comment: Not Reported: BUN and Creatinine are within reference range. SODIUM 143 135 - 146 mmol/L [facility] POTASSIUM 4.0 3.5 - 5.3 mmol/L [facility] CHLORIDE 105 98 - 110 mmol/L [facility] CO2 30 20 - 32 mmol/L [facility] CALCIUM 9.4 8.6 - 10.3 mg/dL [facility] TOTAL PROTEIN 6.7 6.1 - 8.1 g/dL [facility] ALBUMIN 4.4 3.6 - 5.1 g/dL [facility] GLOBULIN 2.3 1.9 - 3.7 g/dL (calc) [facility] ALBUMIN/GLOBULIN RATIO 1.9 1.0 - 2.5 (calc) [facility] BILIRUBIN TOTAL 0.5 0.2 - 1.2 mg/dL [facility] ALKALINE PHOSPHATASE 62 36 - 130 U/L [facility] AST 21 10 - 40 U/L [facility] ALT 24 9 - 46 U/L [facility] Comment: FASTING:YES FASTING: YES Test Performed at: [facility] [address] [place] [address] Mary Sanchez MD Blood 03/29/2025 7:16 AM CDT 03/29/2025 7:17 AM CDT Abdelrahman Matos MD CHEMISTRY ORDERABLES Final Result [facility] [phone] [facility] [address] [place] [address] * POC HEMOGLOBIN A1C (03/19/2025 9:03 AM CDT) HGB A1C POC 5.2 4.0 - 6.0 % [facility] KIT [address] NUMBER POC [address] [facility] KIT EXP DATE POC 12/24 [facility] Blood, capillary 03/19/2025 9:03 AM CDT Derian Castro MD POINT OF CARE TESTING Final R esult [facility] CLIA# [id number] [address] [place] [address] * COLON CANCER SCREEN, STOOL DNA (01/06/2023 9:40 PM CDT) COLOGUARD RESULT Negative Negative [facility] Comment: NEGATIVE TEST RESULT. A negative Cologuard result indicates a low likelihood that a colorectal cancer (CRC) or advanced adenoma (adenomatous polyps with more advanced pre-malignant features) is present. The chance that a person with a negative Cologuard test has a colorectal cancer is less than 1 in 1500 (negative predictive value >99.9%) or has an advanced adenoma is less than 5.3% (negative predictive value 94.7%). These data are based on a prospective cross-sectional study of 10,000 individuals at average risk for colorectal cancer who were screened with both Cologuard and colonoscopy. (Miguel Aguilar al, N Engl J Med 2014;370(14):6703-7963) The normal value (reference range) for this assay is negative. COLOGUARD RE-SCREENING RECOMMENDATION: Periodic colorectal cancer screening is an important part of preventive healthcare for asymptomatic individuals at average risk for colorectal cancer. Following a negative Cologuard result, the [place] Cancer Society and U.S. Multi-Society Task Force screening guidelines recommend a Cologuard re-screening interval of 3 years. References: [place] Cancer Society Guideline for Colorectal Cancer Screening: https://www.cancer.org/cancer/cllnq-ecclid-sugnes/wngwlrlvn-ukqyvhsvp-bghxzgr/ac s-rec ommendations.html.; Wilton DK, Zulma CR, Misty RoldanK, Colorectal Cancer Screening: Recommendations for Physicians and Patients from the U.S. Multi-Society Task Force on Colorectal Cancer Screening , Am J Gastroenterology 2017; 112:2480-8388. TEST DESCRIPTION: Composite algorithmic analysis of stool DNA-biomarkers with hemoglobin immunoassay. Quantitative values of individual biomarkers are not reportable and are not associated with individual biomarker result reference ranges. Cologuard is intended for colorectal cancer screening of adults of either sex, 45 years or older, who are at average-risk for colorectal cancer (CRC). Cologuard has been approved for use by the U.S. FDA. The performance of Cologuard was established in a cross sectional study of average-risk adults aged 50-84. Cologuard performance in patients ages 45 to 49 years was estimated by sub-group analysis of near-age groups. Colonoscopies performed for a positive result may find as the most clinically significant lesion: colorectal cancer [4.0%], advanced adenoma (including sessile serrated polyps greater than or equal to 1cm diameter) [20%] or non- advanced adenoma [31%]; or no colorectal neoplasia [45%]. These estimates are derived from a prospective cross-sectional screening study of 10,000 individuals at average risk for colorectal cancer who were screened with both Cologuard and colonoscopy. (Miguel Aguilar al, N Engl J Med 2014;370(14):4909-0484.) Cologuard may produce a false negative or false positive result (no colorectal cancer or precancerous polyp present at colonoscopy follow up). A negative Cologuard test result does not guarantee the absence of CRC or advanced adenoma (pre-cancer). The current Cologuard screening interval is every 3 years. ([place] Cancer Society and U.S. Multi-Society Task Force). Cologuard performance data in a 10,000 patient pivotal study using colonoscopy as the reference method can be accessed at the following location: www.DNAtriX.CorporateWorld/results. Additional description of the Cologuard test process, warnings and precautions can be found at www.Cyber[employer] Software Systemsrd.com. Stool STOOL SPECIMEN / Unknown 01/06/2023 9:40 PM CDT 01/08/2023 8:43 PM CDT Derian Castro MD BODY FLUIDS AND STOOLS Final Result [facility] CLIA # [id number] [address], [address] [place] [address] from Last 3 Months or Most Recently Relevant to Health [place] [address] [facility] CHOICE [id number] [place] [address] RX [employer] Express RX [employer] Commercial RX [facility] Commercial RX [employer] Express RX [facility] Commercial [[id number] [facility] Commercial RX [employer] Express [facility] Commercial Advance Directives For more information, please contact: [phone] * Full Code (Latest Code Status on File) Date Activated Date Inactivated Comments 12/06/2021 7:40 AM 12/06/2021 2:19 PM Care Teams Roll Edge Stitcher Hand Relationship Specialty [place] [address] [facility] [place] [address] [place] [id number] PCP - General Internal Medicine 09/15/22
[2025-04-15 17:43] LABS: Add Urine Microscopic? YES; Appearance Urine Clear (Clear); Glucose Urine UA Negative (Negative); Leukocyte Esterase Ur Trace LEU/UL (Negative); Need Manual Microscopic Reviewed; Nitrate Urine Negative (Negative); Non Pathogenic Casts >20; Specific Grav Ur 1.027 (1.001-1.035)
--- NOTE | 2025-04-15 19:56 | ADMGEN ---
This patient, Salas Ring, was admitted to 2 Medical Room 260-01. Patient/family oriented to hospital policies and general routines including ID bracelet, bed and alarms, visiting hours, pain management, procedures, bathroom and other care routines, personal items, smoking policy, room service/diet, and visiting hours. Information on how to activate the Rapid Response Team has been discussed. Patient/Family are encouraged to report perceived risks to care and to ask questions if they do not understand what they are told or what they should do.
--- NOTE | 2025-04-15 20:08 | P.HP_ITS ---
H&P: HPI History of Present Illness Date/Time: 04/15/25 20:08 Chief Complaint: Muscle Cramping, Hypoglycemia Narrative: 50 y/o M with PMH of DM presents here with muscle cramping and hypoglycemia. The patient presents here from a local restaurant via EMS for further evaluation of muscle cramping and hypoglycemia. 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 He stopped at a local restaurant where they were able to give him some the eat and he developed muscle cramping. EMS was called and upon their arrival the patient's glucose was 69. He was given 15G of oral glucose. Repeat glucose was 109. The patient has a history of type 2 diabetes on Mounjaro. He reports he did not eat breakfast or lunch prior to feeling ill and the restaurant giving him food/drink. He states when the weather is this hot, he has difficulty eating as it tends to make him feel worse when coupled with the heat. Upon arrival to the emergency department he reported bilateral muscle cramping to his flanks bilaterally that radiated/wrapped around his sides. He denies associated nausea, vomiting, diarrhea, or urinary symptoms. Initial VS at presentation: 97.9? F, HR 108, RR 20, 118/79, and 98% on RA. ED workup showed: WBC 12.2, no anemia, no significant electrolyte derangements, creatinine 2.97 and GFR 23 (no prior available for comparison), for CK 378, albumin 5.2, and UA showed 1+ protein/trace ketones/trace leuk esterase/6-10 WBC with few epithelial cells and no bacteria. Review of Systems Review of Systems: All systems reviewed & are unremarkable except as noted in HPI and below PMFSH Past Medical History Medical History Low testosterone in male Kidney stones Sleep apnea Type 2 diabetes mellitus Family History Family History Mother Diabetes mellitus Hypertension Sibling Hypertension Social History Social History Smoking status: Never smoker Alcohol intake: never Substance use type: does not use Lack of Transportation: No Lack of Food: Never True Current Housing: I Have Housing Concerned About Future Housing: No Difficulty Paying Gas/Electric Bills: No Difficulty Paying for Meds: No Currently Unemployed: No Education: Associate Degree Difficulty w/ Childcare or Family Care: No Spiritual care concerns: No Meds Home Medications and Allergies Home Medications ?Medication ?Instructions ?Recorded ?Confirmed ?Type atorvastatin 20 mg tablet 20 mg PO QPM 04/15/25 04/15/25 History testosterone 2 pump topical DAILY 04/15/25 04/15/25 History tirzepatide 15 mg/0.5 mL 15 mg subcut WEEKLY 04/15/25 04/15/25 History subcutaneous pen injector (Mounjaro) Allergies Allergy/AdvReac Type Severity Reaction Status Date / Time No Known Allergies Allergy Verified 04/15/25 15:36 Vital Signs Vital Signs - 24 hr 04/15/25 15:30 04/15/25 16:02 04/15/25 16:36 Temperature 97.9 F 97.8 F 97.7 F Pulse Rate 108 H 109 H 106 H Respiratory Rate 20 18 18 Blood Pressure 118/79 129/99 H 138/86 Pulse Oximetry 98 98 100 Oxygen Delivery Room Air 04/15/25 17:01 04/15/25 17:38 04/15/25 18:02 Temperature 97.9 F Pulse Rate 102 H 94 85 Respiratory Rate 15 18 15 Blood Pressure 153/84 H 156/96 H 158/92 H Pulse Oximetry 100 100 100 Oxygen Delivery 04/15/25 19:29 04/15/25 20:05 Temperature 98.4 F Pulse Rate 86 74 Respiratory Rate 16 20 Blood Pressure 159/97 H 144/83 H Pulse Oximetry 100 100 Oxygen Delivery Exam Const: General: comfortable and no acute distress Other: , male, nontoxic appearance HENMT: Face/Nose/Sinus: Normal nares present Mouth: Yes moist mucous membranes Eyes: General: appearance normal, both eyes and all related structures Sclera: sclerae normal Pupils: Equal, round and reactive pupils present EOM: EOMs intact bilaterally Resp: Effort & Inspection: normal respiratory effort Auscultation: clear to auscultation bilaterally Cardio: Rate: regular rate Rhythm: regular rhythm Other: S1-S2 present without murmur, rub, ectopy GI: Other: Abdomen soft, nondistended, nontender. Normoactive bowel sounds in all quadrants. Skin: General skin exam: normal color and no rashes or lesions noted Wounds: no wounds Neuro: Speech: normal speech Motor exam (neuro): 5/5 motor strength present throughout Sensory Exam: normal sensation Other: A&O x4 Extrem: General: normal to inspection Psych: Mental Status: mental status grossly normal Affect: normal affect Other: Good insight and judgment, pleasant H&P: Results Labs Labs: Short CBC 04/15/25 Range/Units 16:25 WBC 12.2 H (4.5-10.0) K/mm3 Hgb 16.2 (14.0-18.0) g/dL Hct 47.5 (42.0-52.0) % Plt Count 337 (150-375) k/mm3 BMP 04/15/25 16:25 Sodium 140 Potassium 3.9 Chloride 101 Carbon Dioxide 27 BUN 40 H Creatinine 2.97 H Glucose 77 Calcium 10.4 H Cardiac Enzymes 04/15/25 Range/Units 16:25 Total Creatine Kinase 378 H (55-170) U/L Liver Function 04/15/25 Range/Units 16:25 Total Bilirubin 1.1 (0.2-1.3) mg/dL AST 42 (17-59) U/L ALT 31 (6-50) U/L Alkaline Phosphatase 73 (38-126) U/L Albumin 5.2 H (3.5-5.1) g/dL Urine 04/15/25 Range/Units 17:23 Urine Color Yellow (Yellow) Urine Appearance Clear (Clear) Urine pH 5.0 (5.0-9.0) Ur Specific Meta 1.027 (1.001-1.035) Urine Protein 1+ H (Negative) mg/dL Urine Glucose (UA) Negative (Negative) mg/dL Assessment and Plan Assessment and plan (1) Acute kidney injury: Code(s): N17.9 - Acute kidney failure, unspecified Status: Acute Assessment and Plan: - creatinine 2.97, BUN 40, GFR 23 with no prior lab work available for comparison. Denies previous history of ESRD or renal dysfunction. 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 Whether has had excessive heat > 90 ? F. He reported feeling dehydrated and muscle cramping this afternoon while working. High suspicion for acute dehydration as source of patient's SAADIA coupled with exertion at his job. Will rehydrate over the next 24 hours, if no improvement consider further workup/consultation. (2) Rhabdomyolysis: Qualifiers: Rhabdomyolysis type: non-traumatic Qualified Code(s): M62.82 - Rhabdomyolysis Code(s): M62.82 - Rhabdomyolysis Status: Acute Assessment and Plan: - CK 378 - IV fluids - trend Suspect rhabdomyolysis secondary to acute dehydration. Will treat with IV fluids and trend CK. (3) Type 2 diabetes mellitus: Qualifiers: Diabetes mellitus complication detail: without coma Diabetes mellitus complication status: with hypoglycemia Diabetes mellitus senior care insulin use: without terminal block assembler use Qualified Code(s): E11.649 - Type 2 diabetes mellitus with hypoglycemia without coma Code(s): E11.9 - Type 2 diabetes mellitus without complications Status: Chronic Assessment and Plan: Patient had hypoglycemic episode prior to arrival. He reports difficulty eating when weather is this hot while at work. He was encouraged to bring a calorie dense max with protein such as trail mix while at work to eat in small doses if he is unable to eat a meal. - hypoglycemia protocol - POC blood glucose ACHS - home medication: Mounjaro held - correct regimen ordered - low dose TIDWM, based off TDD - A1C ordered Plan Diet: diabetic GI Prophylaxis: n/a DVT Prophylaxis: SCDs IV fluids: 2L bolus -> 125 mL/hr Lines/Tubes: peripheral IV Code Status: Full code Quality VTE Prophylaxis VTE prophylaxis: mechanical ordered Hospitalist [facility] Advance Care Plan I have confirmed that the patient's Advanced Care Plan is present, code status is documented, or surrogate decision maker is listed in patient medical record.: Yes Medication Reconciliation I have utilized all available resources to obtain, update and review the patients current medications (includes all prescriptions, OTC, herbals, cannabis, and nutritional supplements).: Yes
[2025-04-15] MEDS: SODIUM CHLORIDE 0.9% IV 1,000 ML 125 ML IV CONT (21:13)
[2025-04-16 04:48] LABS: Creatine Kinase 285 U/L (55-170)
[2025-04-16 05:01] VITALS: BP 130/82; PULSE 75; RESP 20; TEMP 36.5; O2SAT 100
[2025-04-16] MEDS: SODIUM CHLORIDE 0.9% IV 1,000 ML 125 ML IV CONT (05:02)
[2025-04-16 05:25] LABS: Hemoglobin A1C 5.2 % (<5.7)
[2025-04-16 08:31] LABS: Urea Random Urine 1242 MG/DL
--- NOTE | 2025-04-16 10:18 | PM.IMPN ---
Progress Note: A&P Assessment and Plan (1) Acute kidney injury: Code(s): N17.9 - Acute kidney failure, unspecified Status: Acute Assessment and Plan: - creatinine 2.97, BUN 40, GFR 23 with no prior lab work available for comparison. Denies previous history of ESRD or renal dysfunction. 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 Whether has had excessive heat > 90 ? F. He reported feeling dehydrated and muscle cramping this afternoon while working. High suspicion for acute dehydration as source of patient's SAADIA coupled with exertion at his job. Will rehydrate over the next 24 hours, if no improvement consider further workup/consultation. 04/16 labs ordered (2) Rhabdomyolysis: Qualifiers: Rhabdomyolysis type: non-traumatic Qualified Code(s): M62.82 - Rhabdomyolysis Code(s): M62.82 - Rhabdomyolysis Status: Acute Assessment and Plan: - CK 378 - IV fluids - trend Suspect rhabdomyolysis secondary to acute dehydration. Will treat with IV fluids and trend CK. (3) Type 2 diabetes mellitus: Qualifiers: Diabetes mellitus remote computer terminal operator insulin use: without detention use Diabetes mellitus complication status: with hypoglycemia Diabetes mellitus complication detail: without coma Qualified Code(s): E11.649 - Type 2 diabetes mellitus with hypoglycemia without coma Code(s): E11.9 - Type 2 diabetes mellitus without complications Status: Chronic Assessment and Plan: Patient had hypoglycemic episode prior to arrival. He reports difficulty eating when weather is this hot while at work. He was encouraged to bring a calorie dense max with protein such as trail mix while at work to eat in small doses if he is unable to eat a meal. - hypoglycemia protocol - POC blood glucose ACHS - home medication: Mounjaro held - correct regimen ordered - low dose TIDWM, based off TDD - A1C ordered- 5.2 on 04/16/ Plan Diet: diabetic GI Prophylaxis: n/a DVT Prophylaxis: SCDs IV fluids: 2L bolus -> 125 mL/hr Lines/Tubes: peripheral IV Code Status: Full code Time Spent With Patient Time with patient: 25 - 35 minutes Subjective Date/time seen: 04/16/25 10:18 Interval history: 50 y/o M with PMH of DM presents here with muscle cramping and hypoglycemia. Retrieved from H/P: The patient presents here from a local restaurant via EMS for further evaluation of muscle cramping and hypoglycemia. He currently works with [employer] and was delivering boxes when he began to feel overheated this afternoon. He stopped at a local restaurant where they were able to give him some the eat and he developed muscle cramping. EMS was called and upon their arrival the patient's glucose was 69. He was given 15G of oral glucose. Repeat glucose was 109. The patient has a history of type 2 diabetes on Mounjaro. He reports he did not eat breakfast or lunch prior to feeling ill and the restaurant giving him food/drink. He states when the weather is this hot, he has difficulty eating as it tends to make him feel worse when coupled with the heat. Upon arrival to the emergency department he reported bilateral muscle cramping to his flanks bilaterally that radiated/wrapped around his sides. He denies associated nausea, vomiting, diarrhea, or urinary symptoms. Initial VS at presentation: 97.9? F, HR 108, RR 20, 118/79, and 98% on RA. ED workup showed: WBC 12.2, no anemia, no significant electrolyte derangements, creatinine 2.97 and GFR 23 (no prior available for comparison), for CK 378, albumin 5.2, and UA showed 1+ protein/trace ketones/trace leuk esterase/6-10 WBC with few epithelial cells and no bacteria. 04/16 pt is seen and evaluated. Review of Systems Review of Systems: All systems reviewed & are unremarkable except as noted in HPI and below Exam Const: General: comfortable and no acute distress Other: , male, nontoxic appearance HENMT: Face/Nose/Sinus: Normal nares present Mouth: Yes moist mucous membranes Eyes: General: appearance normal, both eyes and all related structures Sclera: sclerae normal Pupils: Equal, round and reactive pupils present EOM: EOMs intact bilaterally Resp: Effort & Inspection: normal respiratory effort Auscultation: clear to auscultation bilaterally Cardio: Rate: regular rate Rhythm: regular rhythm Other: S1-S2 present without murmur, rub, ectopy GI: Other: Abdomen soft, nondistended, nontender. Normoactive bowel sounds in all quadrants. Skin: General skin exam: normal color and no rashes or lesions noted Wounds: no wounds Neuro: Cranial nerves: Yes Equal, round and reactive pupils present Speech: normal speech Motor exam (neuro): 5/5 motor strength present throughout Sensory Exam: normal sensation Other: A&O x4 Extrem: General: normal to inspection Psych: Mental Status: mental status grossly normal Affect: normal affect Other: Good insight and judgment, pleasant Objective Data Vital Signs Vital Signs: Vital Signs - 24 hr 04/15/25 15:30 04/15/25 16:02 04/15/25 16:36 Temperature 97.9 F 97.8 F 97.7 F Pulse Rate 108 H 109 H 106 H Respiratory Rate 20 18 18 Blood Pressure 118/79 129/99 H 138/86 Pulse Oximetry 98 98 100 Oxygen Delivery Room Air 04/15/25 17:01 04/15/25 17:38 04/15/25 18:02 Temperature 97.9 F Pulse Rate 102 H 94 85 Respiratory Rate 15 18 15 Blood Pressure 153/84 H 156/96 H 158/92 H Pulse Oximetry 100 100 100 Oxygen Delivery 04/15/25 19:29 04/15/25 20:00 04/15/25 20:05 Temperature 98.4 F Pulse Rate 86 74 Respiratory Rate 16 20 Blood Pressure 159/97 H 144/83 H Pulse Oximetry 100 100 Oxygen Delivery Room Air 04/16/25 05:01 04/16/25 09:00 Temperature 97.7 F Pulse Rate 75 Respiratory Rate 20 Blood Pressure 130/82 Pulse Oximetry 100 Oxygen Delivery Room Air Intake/Output Intake/Output: Intake & Output 04/13/25 04/14/25 04/15/25 04/16/25 23:59 23:59 23:59 23:59 Intake Total 1999 1607.1 Balance 1999 1607.1 Meds/Results Medications: Active Medications Generic Name Dose Route Start Last Admin Trade Name Freq PRN Reason Stop Dose Admin Acetaminophen 650 mg 04/15/25 20:23 Acetaminophen 325 Mg Tablet PO Q6H PRN Mild Pain (1-3) or Fever Atorvastatin Calcium 20 mg 04/15/25 20:30 04/15/25 21:14 Atorvastatin 20 Mg Tablet PO Not Given QPM [facility] Dextrose 12.5 gm 04/15/25 20:18 Dextrose 50% 25 Gm/50 Ml Syringe IV PUSH PRN PRN Hypoglycemia Protocol Glucagon 1 mg 04/15/25 20:18 Glucagon For Inj 1 Mg Vial IM PRN PRN Hypoglycemia Protocol Glucose 15 gm 04/15/25 20:18 Glucose Oral Gel 15 Gm Of Glucse In 37.5 Gm Tube PO PRN PRN Hypoglycemia Protocol Sodium Chloride 1,000 mls @ 125 mls/hr 04/15/25 18:50 04/16/25 05:02 Normal Saline Iv IV CONT 125 mls/hr .Q8H SUKHDEV Administration Dextrose 1,000 mls @ 100 mls/hr 04/15/25 20:18 Dextrose 5% 1,000 Ml IVPB PRN PRN Hypoglycemia Protocol Insulin Aspart 2 - 5 units 04/16/25 08:00 04/16/25 07:42 Insulin Aspart (*Bkc) 100 Units/Ml SUB-Q Not Given TIDWM SUKHDEV Protocol Ondansetron HCl 4 mg 04/15/25 20:23 Ondansetron Hcl Odt 4 Mg Tablet PO Q6H PRN Nausea And Vomiting Polyethylene Glycol 17 gm 04/15/25 20:23 Polyethylene Glycol 3350 17 Gm Powd.Pack PO QAM PRN Constipation Labs Labs: Laboratory Results - last 24 hr 04/15/25 04/15/25 04/15/25 16:25 17:23 20:10 WBC 12.2 H RBC 5.49 Hgb 16.2 Hct 47.5 MCV 86.5 MCH 29.5 MCHC 34.1 RDW 12.9 Plt Count 337 MPV 9.5 Immature Gran % (Auto) 0.5 Neut % (Auto) 76.9 H Lymph % (Auto) 14.2 L [place] % (Auto) 6.6 Eos % (Auto) 1.6 Baso % (Auto) 0.2 Lymph # (Auto) 1.73 [place] # (Auto) 0.8 H Eos # (Auto) 0.2 Baso # (Auto) 0.0 Abs Immat Gran (auto) 0.06 H Absolute Neuts (auto) 9.4 H Absolute Nucleated RBC 0.000 Nucleated RBC % 0.0 Sodium 140 Potassium 3.9 Chloride 101 Carbon Dioxide 27 Anion Gap 12 BUN 40 H Creatinine 2.97 H Estim Creat Clear Calc 32 Estimated GFR 23 L Glucose 77 POC Capillary Glucose 61 L Hemoglobin A1c Calcium 10.4 H Total Bilirubin 1.1 AST 42 ALT 31 Alkaline Phosphatase 73 Total Creatine Kinase 378 H Total Protein 9.5 H Albumin 5.2 H Urine Color Yellow Urine Appearance Clear Urine pH 5.0 Ur Specific [place] 1.027 Urine Protein 1+ H Urine Glucose (UA) Negative Urine Ketones Trace H Ur Blood (Man) Trace Urine Nitrate Negative Urine Bilirubin Negative Urine Urobilinogen 0.2 Add Ur Microanalysis Reviewed Leukocyte Esterase Rfl Trace H Urine RBC 0-2 Urine WBC 6-10 H Ur Squamous Epith Cells Few Urine Bacteria None seen Urine Casts >20 Ur Random Sodium Ur Random Urea 04/15/25 04/16/25 04/16/25 20:32 04:14 07:26 WBC RBC Hgb Hct MCV MCH MCHC RDW Plt Count MPV Immature Gran % (Auto) Neut % (Auto) Lymph % (Auto) [place] % (Auto) Eos % (Auto) Baso % (Auto) Lymph # (Auto) [place] # (Auto) Eos # (Auto) Baso # (Auto) Abs Immat Gran (auto) Absolute Neuts (auto) Absolute Nucleated RBC Nucleated RBC % Sodium Potassium Chloride Carbon Dioxide Anion Gap BUN Creatinine Estim Creat Clear Calc Estimated GFR Glucose POC Capillary Glucose 84 82 Hemoglobin A1c 5.2 Calcium Total Bilirubin AST ALT Alkaline Phosphatase Total Creatine Kinase 285 H Total Protein Albumin Urine Color Urine Appearance Urine pH Ur Specific [place] Urine Protein Urine Glucose (UA) Urine Ketones Ur Blood (Man) Urine Nitrate Urine Bilirubin Urine Urobilinogen Add Ur Microanalysis Leukocyte Esterase Rfl Urine RBC Urine WBC Ur Squamous Epith Cells Urine Bacteria Urine Casts Ur Random Sodium Ur Random Urea 04/16/25 07:47 WBC RBC Hgb Hct MCV MCH MCHC RDW Plt Count MPV Immature Gran % (Auto) Neut % (Auto) Lymph % (Auto) [place] % (Auto) Eos % (Auto) Baso % (Auto) Lymph # (Auto) [place] # (Auto) Eos # (Auto) Baso # (Auto) Abs Immat Gran (auto) Absolute Neuts (auto) Absolute Nucleated RBC Nucleated RBC % Sodium Potassium Chloride Carbon Dioxide Anion Gap BUN Creatinine Estim Creat Clear Calc Estimated GFR Glucose POC Capillary Glucose Hemoglobin A1c Calcium Total Bilirubin AST ALT Alkaline Phosphatase Total Creatine Kinase Total Protein Albumin Urine Color Urine Appearance Urine pH Ur Specific [place] Urine Protein Urine Glucose (UA) Urine Ketones Ur Blood (Man) Urine Nitrate Urine Bilirubin Urine Urobilinogen Add Ur Microanalysis Leukocyte Esterase Rfl Urine RBC Urine WBC Ur Squamous Epith Cells Urine Bacteria Urine Casts Ur Random Sodium 76 Ur Random Urea 1242 Quality VTE Prophylaxis VTE prophylaxis: mechanical ordered
[2025-04-16 10:37] LABS: Hematocrit 40.8 % (42.0-52.0); Hemoglobin 13.4 g/dL (14.0-18.0); Mean Corpuscular HGB Conc 32.8 g/dl (32-36); Mean Corpuscular Hemoglobin 29.5 pg (26-34); Mean Corpuscular Volume 89.9 fl (80-100); Platelet Count Result 268 k/mm3 (150-375); Red Blood Count 4.54 M/mm3 (4.6-6.20); White Blood Count 9.0 K/mm3 (4.5-10.0)
[2025-04-16 10:40] LABS: Anion Gap 10 mmol/L (4-12); Blood Urea Nitrogen 30 mg/dL (9-20); Calcium 8.7 mg/dL (8.4-10.2); Carbon Dioxide 25 mmol/L (22-30); Chloride 104 mmol/L (98-107); Estimated CRCL calculation 63 ml/min; Estimated Glomerular Filt Rate 50; Glucose 79 mg/dL (65-110); Potassium 4.0 mmol/L (3.4-5.0); Sodium 139 mmol/L (137-145)
--- NOTE | 2025-04-16 11:57 | PM.DS ---
DS: Admitting Diagnosis Discharge Date 04/16 Admitting Diagnosis dehydration, martha DS: Discharge Diagnosis Discharge Diagnosis (1) Acute kidney injury: Code(s): N17.9 - Acute kidney failure, unspecified Status: Acute (2) Rhabdomyolysis: Qualifiers: Rhabdomyolysis type: non-traumatic Qualified Code(s): M62.82 - Rhabdomyolysis Code(s): M62.82 - Rhabdomyolysis Status: Acute (3) Type 2 diabetes mellitus: Qualifiers: Diabetes mellitus assisted insulin use: without assisted use Diabetes mellitus complication status: with hypoglycemia Diabetes mellitus complication detail: without coma Qualified Code(s): E11.649 - Type 2 diabetes mellitus with hypoglycemia without coma Code(s): E11.9 - Type 2 diabetes mellitus without complications Status: Chronic DS: Summary Hospital Course Hospital Course: 50 y/o M with PMH of DM presents here with muscle cramping and hypoglycemia. The patient presents here from a local restaurant via EMS for further evaluation of muscle cramping and hypoglycemia. 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 He stopped at a local restaurant where they were able to give him some the eat and he developed muscle cramping. EMS was called and upon their arrival the patient's glucose was 69. He was given 15G of oral glucose. Repeat glucose was 109. The patient has a history of type 2 diabetes on Mounjaro. He reports he did not eat breakfast or lunch prior to feeling ill and the restaurant giving him food/drink. He states when the weather is this hot, he has difficulty eating as it tends to make him feel worse when coupled with the heat. Upon arrival to the emergency department he reported bilateral muscle cramping to his flanks bilaterally that radiated/wrapped around his sides. He denies associated nausea, vomiting, diarrhea, or urinary symptoms. Pt received IV fluids His creatine/BUN improved to 1.49/30 He will get labs rechecked within 1 week after discharge. Will need a close f/u with PCP. He is encouraged to stay hydrated throughout the day. Hga1c 5.2- will need to discuss with prescribing provider about possibly going down in dose on Mounjaro as he is on maintenance (max) dose 15 mg weekly which may be too much for him. He will need to ensure he is eating small portions throughout the day with emphases on lean protein, fruits/veggies and grains, he is encouraged to utilize protein shakes/drinks. Status at Discharge Functional status at discharge: independent ambulation Overall status at discharge: patient is back to baseline Time Spent with Patient Time attestation: Total time spent providing and/or coordinating discharge services: Time spent: Greater than 30 minutes Exam Const: General: comfortable and no acute distress Other: , male, nontoxic appearance HENMT: Face/Nose/Sinus: Normal nares present Mouth: Yes moist mucous membranes Eyes: General: appearance normal, both eyes and all related structures Sclera: sclerae normal Pupils: Equal, round and reactive pupils present EOM: EOMs intact bilaterally Resp: Effort & Inspection: normal respiratory effort Auscultation: clear to auscultation bilaterally Cardio: Rate: regular rate Rhythm: regular rhythm Other: S1-S2 present without murmur, rub, ectopy GI: Other: Abdomen soft, nondistended, nontender. Normoactive bowel sounds in all quadrants. Skin: General skin exam: normal color and no rashes or lesions noted Wounds: no wounds Neuro: Cranial nerves: Yes Equal, round and reactive pupils present Speech: normal speech Motor exam (neuro): 5/5 motor strength present throughout Sensory Exam: normal sensation Other: A&O x4 Extrem: General: normal to inspection Psych: Mental Status: mental status grossly normal Affect: normal affect Other: Good insight and judgment, pleasant DS: Data Data Completed and Pending Labs on day of discharge: Labs from last 24 hours 04/16/25 04/16/25 04/16/25 11:48 07:47 07:26 WBC RBC Hgb Hct MCV MCH MCHC RDW Plt Count MPV Immature Gran % (Auto) Neut % (Auto) Lymph % (Auto) [place] % (Auto) Eos % (Auto) Baso % (Auto) Lymph # (Auto) [place] # (Auto) Eos # (Auto) Baso # (Auto) Abs Immat Gran (auto) Absolute Neuts (auto) Absolute Nucleated RBC Nucleated RBC % Sodium Potassium Chloride Carbon Dioxide Anion Gap BUN Creatinine Estim Creat Clear Calc Estimated GFR Glucose POC Capillary Glucose 98 82 Hemoglobin A1c Calcium Total Bilirubin AST ALT Alkaline Phosphatase Total Creatine Kinase Total Protein Albumin Urine Color Urine Appearance Urine pH Ur Specific [place] Urine Protein Urine Glucose (UA) Urine Ketones Ur Blood (Man) Urine Nitrate Urine Bilirubin Urine Urobilinogen Add Ur Microanalysis Leukocyte Esterase Rfl Urine RBC Urine WBC Ur Squamous Epith Cells Urine Bacteria Urine Casts U Random Total Protein Pending Ur Random Sodium 76 Ur Random Urea 1242 Urine Creatinine Pending Protein/Creat Ratio 2 Pending 04/16/25 04/15/25 04/15/25 04:14 20:32 20:10 WBC 9.0 RBC 4.54 L Hgb 13.4 L Hct 40.8 L MCV 89.9 MCH 29.5 MCHC 32.8 RDW 13.3 Plt Count 268 MPV 10.2 Immature Gran % (Auto) Neut % (Auto) Lymph % (Auto) [place] % (Auto) Eos % (Auto) Baso % (Auto) Lymph # (Auto) [place] # (Auto) Eos # (Auto) Baso # (Auto) Abs Immat Gran (auto) Absolute Neuts (auto) Absolute Nucleated RBC Nucleated RBC % Sodium 139 Potassium 4.0 Chloride 104 Carbon Dioxide 25 Anion Gap 10 BUN 30 H D Creatinine 1.49 H Estim Creat Clear Calc 63 Estimated GFR 50 L Glucose 79 POC Capillary Glucose 84 61 L Hemoglobin A1c 5.2 Calcium 8.7 Total Bilirubin AST ALT Alkaline Phosphatase Total Creatine Kinase 285 H Total Protein Albumin Urine Color Urine Appearance Urine pH Ur Specific [place] Urine Protein Urine Glucose (UA) Urine Ketones Ur Blood (Man) Urine Nitrate Urine Bilirubin Urine Urobilinogen Add Ur Microanalysis Leukocyte Esterase Rfl Urine RBC Urine WBC Ur Squamous Epith Cells Urine Bacteria Urine Casts U Random Total Protein Ur Random Sodium Ur Random Urea Urine Creatinine Protein/Creat Ratio 2 04/15/25 04/15/25 17:23 16:25 WBC 12.2 H RBC 5.49 Hgb 16.2 Hct 47.5 MCV 86.5 MCH 29.5 MCHC 34.1 RDW 12.9 Plt Count 337 MPV 9.5 Immature Gran % (Auto) 0.5 Neut % (Auto) 76.9 H Lymph % (Auto) 14.2 L [place] % (Auto) 6.6 Eos % (Auto) 1.6 Baso % (Auto) 0.2 Lymph # (Auto) 1.73 [place] # (Auto) 0.8 H Eos # (Auto) 0.2 Baso # (Auto) 0.0 Abs Immat Gran (auto) 0.06 H Absolute Neuts (auto) 9.4 H Absolute Nucleated RBC 0.000 Nucleated RBC % 0.0 Sodium 140 Potassium 3.9 Chloride 101 Carbon Dioxide 27 Anion Gap 12 BUN 40 H Creatinine 2.97 H Estim Creat Clear Calc 32 Estimated GFR 23 L Glucose 77 POC Capillary Glucose Hemoglobin A1c Calcium 10.4 H Total Bilirubin 1.1 AST 42 ALT 31 Alkaline Phosphatase 73 Total Creatine Kinase 378 H Total Protein 9.5 H Albumin 5.2 H Urine Color Yellow Urine Appearance Clear Urine pH 5.0 Ur Specific [place] 1.027 Urine Protein 1+ H Urine Glucose (UA) Negative Urine Ketones Trace H Ur Blood (Man) Trace Urine Nitrate Negative Urine Bilirubin Negative Urine Urobilinogen 0.2 Add Ur Microanalysis Reviewed Leukocyte Esterase Rfl Trace H Urine RBC 0-2 Urine WBC 6-10 H Ur Squamous Epith Cells Few Urine Bacteria None seen Urine Casts >20 U Random Total Protein Ur Random Sodium Ur Random Urea Urine Creatinine Protein/Creat Ratio 2 Discharge Plan Discharge Attending physician on discharge: James Munoz Discharging Clinician: Kusum Rey Patient Disposition: Home Activity: may shower Diet: diabetic Discharge Instructions: You were admitted with muscle cramping and hypoglycemia, received IV fluids, ultrasound of kidney were completed. If tehre are any concerning findings, we will call and notify you. Your creatine/BUN (kideny function) improved. As we discussed, please get labs rechecked within 1 week after discharge. You will need a close f/u with PCP. Please stay hydrated throughout the day. Hga1c 5.2. Please discuss with prescribing provider about possibly going down in dose on Mounjaro. Ensure you are eating small portions throughout the day with emphases on lean protein, fruits/veggies and grains, and utilize protein shakes/drinks. Patient Instructions: Antibiotic Form Patient Language: Guamanian Stand Alone Forms: General Discharge Information Follow-up/Referrals: PHYSICIAN NOT ON STAFF,NONSTAFF [Primary Care Provider] - 2 Weeks (f/u with PCP) Discharge Medications: Continued Mounjaro 15 mg/0.5 mL pen injector 15 mg SUBCUT WEEKLY Rx Instructions: Wednesday atorvastatin 20 mg tablet 20 mg PO QPM testosterone 20.25 mg/1.25 gram (1.62 %) gel in metered-dose pump 2 pump topical DAILY Date of admission: 04/15/25 18:46 Primary Care Provider: PHYSICIAN NOT ON STAFF,NONSTAFF Admitting Provider: James Munoz Attending physician on admission: James Munoz Condition: Stable Quality VTE Prophylaxis VTE prophylaxis: mechanical ordered Hospitalist MIPS Heart Failure (Exclusion) Patient has history of Heart Transplant or Left Ventricular Assistive Device?: No IF YES, STOP HERE Heart Failure (Qualifier) Patient has current or prior documentation of LVEF less than or equal to 40%, or mod/servere depressed LVSF?: No IF NO, STOP HERE
[2025-04-16 12:46] LABS: Total Protein Urine Random < 5 mg/dL; Ur Ttl Prot Creatinine Ratio < 0.03 mg/mg (0-0.20)
== END 2025-04-16 13:05 | disposition home or self-care (01) ==
LOC: ANHED 19:04 → ANH2MED 19:23
PROVIDERS: Nurse Practitioner; Student in an Organized Health Care Education/Training Program; Admitting Provider Family Medicine; Emergency Provider Physician Assistant; Visit Provider Family Medicine
DX: M62.82 Rhabdomyolysis (principal); E11.649 Type 2 diabetes mellitus with hypoglycemia without coma; N17.9 Acute kidney failure, unspecified; Z79.85 Long-term (current) use of injectable non-insulin antidiabetic drugs
CPT/HCPCS: 36415; 76775; 80048; 80053; 81001; 82550; 82570; 82948; 83036; 84156; 84300; 84540; 85025; 85027; 87086; 96360; 96361; 99285; G0378; J7030; J7120